=== PATIENT | female | born 1965 | race Caucasian/White ===

== ENCOUNTER 2016-10-17 16:45 | Emergency (ER) | payer SELFPAY ==
[~2016-10-17 16:45] MED LIST: CIPROFLOXACN500 MG PO; DOXYCYCL HYC100 MG PO; FLEXERIL5 M1 PO; KEFLEX500 MG PO; PREDNISONE10 MG PO; PROAIR HFA IN; ZITHROMAX500 MG PO
== END 2016-10-17 17:04 | disposition left against medical advice (07) | DRG 951 ==
LOC: ED 16:45 → LWOBS 17:04
DX: Z91.19 Patient's noncompliance with other medical treatment and regimen (principal)

== ENCOUNTER 2016-10-21 12:31 | Emergency (ER) | payer OTHER ==
[~2016-10-21] VITALS: Ht 154.9 cm; Wt 70.0 kg
[2016-10-21] MEDS ORDERED: ASPIRIN81 MG PO (14:19)
[2016-10-21] MEDS ORDERED: BUSPIRONE5 MG PO (14:20)
[2016-10-21] MEDS ORDERED: SURFAK240 MG/CAP PO (14:20)
[2016-10-21] MEDS ORDERED: METOPROL TAR25 MG PO (14:21)
[2016-10-21] MEDS ORDERED: FERR SULFATE325 MG PO (14:21)
[2016-10-21] MEDS ORDERED: OMEPRAZOLE10 MG PO (14:22)
[2016-10-21] MEDS ORDERED: TRAZODONE50 MG PO (14:23)
[2016-10-21] MEDS ORDERED: FLEXERIL PO (14:52)
[2016-10-21] MEDS ORDERED: PREDNISONE10 MG PO (14:52)
[2016-10-21] MEDS ORDERED: LORTAB 7.5-3251 TAB PO (14:52)
[2016-10-21 15:07] VITALS: BP 137/82
== END 2016-10-21 15:07 | disposition home or self-care (01) | DRG 563 ==
LOC: ED 12:31
DX: S39.012A Strain of muscle, fascia and tendon of lower back, initial encounter (principal); V53.0XXA Driver of pick-up truck or van injured in collision with car, pick-up truck or van in nontraffic accident, initial encounter; Y93.89 Activity, other specified; Y92.414 Local residential or business street as the place of occurrence of the external cause

== ENCOUNTER 2018-12-15 11:19 | Emergency (ER) | payer SELFPAY ==
[~2018-12-15] VITALS: Ht 154.9 cm; Wt 91.0 kg
[~2018-12-15 11:19] MED LIST changes: +ASPIRIN81 MG PO; +BUSPIRONE5 MG PO; +FERR SULFATE325 MG PO; +FLEXERIL PO; +LORTAB 7.5-3251 TAB PO; +METOPROL TAR25 MG PO; +OMEPRAZOLE10 MG PO; +SURFAK240 MG/CAP PO; +TRAZODONE50 MG PO
[2018-12-15] MEDS ORDERED: AMLODIPINE BESYL5 MG PO (11:49)
[2018-12-15] MEDS ORDERED: TRAZODONE HCL100 MG PO (11:49)
[2018-12-15] MEDS ORDERED: QUETIAPINE FUM100 MG PO (11:50)
[2018-12-15 12:42] LABS: IMMATURE GRANULOCYTES 0.5 % (0.0-5.0); MEAN CELL VOLUME 90.9 fL CALC (80.0-100.0); MEAN CORPUSCULAR HGB 30.9 pG CALC (26.0-32.0); NEUT# 7.91 thou/uL (2.00-7.15); RED BLOOD COUNT 4.63 mill/uL (4.20-5.60); RED CELL DISTRI WIDTH 13.3 % (11.5-15.5)
[2018-12-15 12:44] LABS: HEMOGLOBIN 14.3 g/dl (12.0-16.0); URINE BILIRUBIN - DIPSTICK NEGATIVE (NEGATIVE); URINE BLOOD DIPSTICK NEGATIVE (NEGATIVE); URINE COLOR YELLOW; URINE GLUCOSE - DIPSTICK NEGATIVE (NEGATIVE); URINE KETONE NEGATIVE (NEGATIVE); URINE LEUK ESTERASE NEGATIVE (NEGATIVE); URINE NITRITE - DIPSTICK NEGATIVE (Negative); URINE PROTEIN - DIPSTICK NEGATIVE (NEG-TRACE); URINE UROBILINOGEN - DIPSTICK 0.2 E.U./dL (0.2)
[2018-12-15 12:45] LABS: HEMATOCRIT 42.1 % (37.0-47.0)
[2018-12-15 12:48] LABS: BARBITURATES NEGATIVE (NEGATIVE); COCAINE NEGATIVE (NEGATIVE); METHADONE NEGATIVE (NEGATIVE); OXCYCODONE NEGATIVE (NEGATIVE); TETRAHYDROCANNABIONOL POSITIVE (NEGATIVE); TRICYLIC ANTIDEPRESSANTS NEGATIVE (NEGATIVE)
[2018-12-15 12:58] LABS: ALKALINE PHOSPHATASE 148 u/l (38-126); BILIRUBIN, TOTAL 0.6 mg/dL (0.0-1.4); BUN 9 mg/dL (7-17); BUN/CREATININE RATIO 10 (12-20 (CALC)); CHLORIDE 94 mmol/l (95-108); CREATININE 0.9 mg/dL (0.5-1.0); GFR > 60 ML/MIN (>=60 (CALC)); GFR FOR AFR.AMER. > 60 ML/MIN (>=60 (CALC)); MAGNESIUM 2.2 mg/dL (1.6-2.3); SODIUM 136 mmol/l (137-146); TOTAL PROTEIN 7.4 g/dL (6.3-8.2)
[2018-12-15 13:18] LABS: ALBUMIN 4.4 g/dL (3.2-5.0); ANION GAP 12 (6-22 (CALC)); CARBON DIOXIDE 33 mmol/l (22-30); POTASSIUM 2.6 mmol/l (3.5-5.1); SGOT/AST 36 u/l (14-36)
[2018-12-15 13:28] LABS: TSH, 3RD GENERATION 5.16 uIU/mL (0.47 - 4.68)
[2018-12-15] MEDS ORDERED: DITROPAN PO (13:36)
[2018-12-15] MEDS ORDERED: BUSPAR10 M1 PO (13:36)
[2018-12-15] MEDS ORDERED: HYDROXYZ HCL50 MG PO (13:37)
[2018-12-15] MEDS ORDERED: CYCLOBENZAPRINE10 MG PO (13:37)
[2018-12-15] MEDS ORDERED: VITAMIN D H1000 UNIT PO (13:39)
[2018-12-15] MEDS ORDERED: POTASSIUM CHLO20 ME1 PO (13:46)
[2018-12-15 14:40] VITALS: BP 122/69
== END 2018-12-15 14:44 | disposition home or self-care (01) | DRG 538 ==
LOC: ED 11:19
PROVIDERS: Family Medicine
DX: S76.011A Strain of muscle, fascia and tendon of right hip, initial encounter (principal); S46.911A Strain of unspecified muscle, fascia and tendon at shoulder and upper arm level, right arm, initial encounter; E87.6 Hypokalemia; T50.2X5A Adverse effect of carbonic-anhydrase inhibitors, benzothiadiazides and other diuretics, initial encounter; I10 Essential (primary) hypertension; F17.210 Nicotine dependence, cigarettes, uncomplicated; Y04.0XXA Assault by unarmed brawl or fight, initial encounter; Z86.73 Personal history of transient ischemic attack (TIA), and cerebral infarction without residual deficits

== ENCOUNTER 2020-05-12 18:00 | Emergency (ER) | payer SELFPAY ==
[~2020-05-12] VITALS: Ht 154.9 cm; Wt 77.3 kg
[~2020-05-12 18:00] MED LIST changes: +AMLODIPINE BESYL5 MG PO; +BUSPAR10 M1 PO; +CYCLOBENZAPRINE10 MG PO; +DITROPAN PO; +HYDROXYZ HCL50 MG PO; +POTASSIUM CHLO20 ME1 PO; +QUETIAPINE FUM100 MG PO; +TRAZODONE HCL100 MG PO; +VITAMIN D H1000 UNIT PO
[2020-05-12] MEDS ORDERED: IRON28 M1 PO (18:43)
[2020-05-12] MEDS ORDERED: FLONASE AL50 MCG/AC1 (18:44)
[2020-05-12 18:48] LABS: HEMATOCRIT 47.3 % (37.0-47.0); IMMATURE GRANULOCYTES 0.5 % (0.0-5.0); MEAN CORPUSCULAR HGB 32.1 pG CALC (26.0-32.0); MEAN CORPUSCULAR HGB CONC 34.9 g/dL CAL (32.0-36.0); NEUT# 19.83 thou/uL (2.00-7.15); RED BLOOD COUNT 5.14 mill/uL (4.20-5.60); RED CELL DISTRI WIDTH 13.2 % (11.5-15.5)
[2020-05-12 18:53] LABS: HEMOGLOBIN 16.5 g/dl (12.0-16.0)
[2020-05-12 19:02] LABS: URINE BLOOD DIPSTICK MODERATE (NEGATIVE); URINE GLUCOSE - DIPSTICK NEGATIVE (NEGATIVE); URINE KETONE 15 mg/dL (NEGATIVE); URINE NITRITE - DIPSTICK NEGATIVE (Negative); URINE PROTEIN - DIPSTICK 100 mg/dL (NEG-TRACE); URINE SPECIFIC GRAVITY >=1.030
[2020-05-12 19:03] LABS: URINE BILIRUBIN - DIPSTICK SMALL (NEGATIVE); URINE LEUK ESTERASE SMALL (NEGATIVE)
[2020-05-12 19:04] LABS: URINE COLOR DK. YELLOW
[2020-05-12 19:05] LABS: ALBUMIN 4.2 g/dL (3.2-5.0); ALKALINE PHOSPHATASE 159 u/l (38-126); ANION GAP 11 (6-22 (CALC)); BILIRUBIN, TOTAL 0.9 mg/dL (0.0-1.4); BUN 16 mg/dL (7-17); BUN/CREATININE RATIO 22 (12-20 (CALC)); CARBON DIOXIDE 25 mmol/l (22-30); CHLORIDE 100 mmol/l (95-108); CREATININE 0.8 mg/dL (0.5-1.0); GFR > 60 ML/MIN (>=60 (CALC)); GFR FOR AFR.AMER. > 60 ML/MIN (>=60 (CALC)); POTASSIUM 3.3 mmol/l (3.5-5.1); SGOT/AST 31 u/l (14-36); SODIUM 133 mmol/l (137-146); TOTAL PROTEIN 7.7 g/dL (6.3-8.2)
[2020-05-12 19:08] LABS: URINE BACTERIA MANY hpf; URINE SQUAMOUS EPITHELIAL CELL FEW EPI/hpf (0-FEW); URINE WBC 20-50 WBC/hpf (0-5)
[2020-05-12 19:11] LABS: PROTHROMBIN TIME 10.4 SECONDS (9.0-12.5)
[2020-05-12 20:27] VITALS: BP 186/83
[2020-05-12] MEDS ORDERED: BACTRIM DS1 TAB PO (20:55)
[2020-05-12] MEDS ORDERED: OMEPRAZOLE DR40 MG PO (20:55)
== END 2020-05-12 21:20 | disposition home or self-care (01) | DRG 378 ==
LOC: ED 18:00
PROVIDERS: Emergency Medicine
DX: K92.0 Hematemesis (principal); N39.0 Urinary tract infection, site not specified; I10 Essential (primary) hypertension; F31.9 Bipolar disorder, unspecified; F17.200 Nicotine dependence, unspecified, uncomplicated; B96.1 Klebsiella pneumoniae [K. pneumoniae] as the cause of diseases classified elsewhere; Z87.11 Personal history of peptic ulcer disease; Z86.73 Personal history of transient ischemic attack (TIA), and cerebral infarction without residual deficits
CPT/HCPCS: S0164

== ENCOUNTER 2022-11-16 01:25 | Emergency (ER) | payer OTHER ==
[~2022-11-16] VITALS: Ht 154.9 cm; Wt 88.0 kg
[~2022-11-16 01:25] MED LIST changes: +BACTRIM DS1 TAB PO; +FLONASE AL50 MCG/AC1; +IRON28 M1 PO; +OMEPRAZOLE DR40 MG PO
[2022-11-16 01:35] VITALS: BP 158/77
[2022-11-16 01:45] VITALS: BP 127/82
[2022-11-16 02:00] VITALS: BP 142/74
[2022-11-16 02:15] VITALS: BP 139/71
== END 2022-11-16 02:26 | DRG 605 ==
LOC: ED 01:25
DX: S80.212A Abrasion, left knee, initial encounter (principal); I10 Essential (primary) hypertension; F20.9 Schizophrenia, unspecified; F31.9 Bipolar disorder, unspecified; F17.200 Nicotine dependence, unspecified, uncomplicated; Z86.73 Personal history of transient ischemic attack (TIA), and cerebral infarction without residual deficits; V49.40XA Driver injured in collision with unspecified motor vehicles in traffic accident, initial encounter